=== PATIENT | female | born 1945 | race American Indian/Alaskan Native ===

== ENCOUNTER 2018-09-01 11:27 | Day surgery (SDC) | payer MEDICARE ==
[~2018-09-01 11:27] MED LIST: IOPIDINE ONE; IOPIDINE OS ONE; MARCAINE 0.25% INFILTRATI ONE; MYDRIACYL ONE; MYDRIACYL OS ONE; NEOFRIN ONE; NEOFRIN OS ONE; XYLOCAINE 1% 20 mL ONE
[2018-09-01] MEDS ORDERED: MYDRIACYL OS ONE (11:50)
[2018-09-01] MEDS ORDERED: IOPIDINE OS ONE (11:50)
[2018-09-01] MEDS ORDERED: NEOFRIN OS ONE (11:50)
[2018-09-01 12:40] VITALS: BP 122/66
== END 2018-09-01 11:28 | disposition home or self-care (01) ==
LOC: OR 11:27
PROVIDERS: ATTEND Specialist
DX: E11.36 Type 2 diabetes mellitus with diabetic cataract (principal); H26.492 Other secondary cataract, left eye; I10 Essential (primary) hypertension; E78.00 Pure hypercholesterolemia, unspecified; K21.9 Gastro-esophageal reflux disease without esophagitis; F20.9 Schizophrenia, unspecified; F17.210 Nicotine dependence, cigarettes, uncomplicated; Z79.84 Long term (current) use of oral hypoglycemic drugs; Z79.899 Other long term (current) drug therapy; Z98.42 Cataract extraction status, left eye; Z98.890 Other specified postprocedural states
CPT/HCPCS: 82962